=== PATIENT | female | born 1945 | race Caucasian/White ===

== ENCOUNTER 2019-04-24 09:11 | Outpatient (RCR) | payer MEDICARE ==
[~2019-04-24 09:11] MED LIST: CARB25TA18 PO; CLON0.5T17 PO; HERC150I IV; LATA0.0015 OP
[2019-05-05] MEDS ORDERED: DORZ2SOL5 OU (12:32)
[2019-05-05] MEDS ORDERED: REME15TA PO (12:32)
[2019-05-05] MEDS ORDERED: LETR2.5T2 PO (12:32)
[2019-05-05] MEDS ORDERED: GABA-1171 PO (13:10)
[2019-05-05] MEDS ORDERED: VALA1TAB2 PO (13:10)
[2019-05-20] MEDS ORDERED: IBUP-1022 PO (14:17)
[2019-05-20] MEDS ORDERED: GABA-843 PO (14:17)
[2019-05-20] MEDS ORDERED: ENDO5TAB PO (14:17)
[2019-05-20] MEDS ORDERED: LIDO5DIS41 TOP (14:17)
[2019-05-25] MEDS ORDERED: GABA-843 PO (12:14)
[2019-05-25] MEDS ORDERED: ENDO5TAB PO (12:15)
== END 2019-05-23 ==
LOC: M PT 09:11
PROVIDERS: ATTEND Internal Medicine Hematology & Oncology
DX: I89.0 Lymphedema, not elsewhere classified (principal)

== ENCOUNTER 2019-05-05 11:11 | Emergency (ER) | payer MEDICARE ==
[~2019-05-05] VITALS: Ht 167.6 cm; Wt 56.8 kg
[2019-05-05] MEDS ORDERED: LETR2.5T2 PO (12:32)
[2019-05-05] MEDS ORDERED: DORZ2SOL5 OU (12:32)
[2019-05-05] MEDS ORDERED: REME15TA PO (12:32)
[2019-05-05] MEDS ORDERED: VALA1TAB2 PO (13:10)
[2019-05-05] MEDS ORDERED: GABA-1171 PO (13:10)
[2019-05-05 13:29] VITALS: BP 141/67
[2019-05-25] MEDS ORDERED: GABA-843 PO (12:14)
[2019-05-25] MEDS ORDERED: ENDO5TAB PO (12:15)
== END 2019-05-05 13:32 | disposition home or self-care (01) ==
LOC: M ED 11:11
DX: B02.9 Zoster without complications (principal); M79.2 Neuralgia and neuritis, unspecified; Z85.3 Personal history of malignant neoplasm of breast; Z72.0 Tobacco use; Z79.899 Other long term (current) drug therapy

== ENCOUNTER → 2019-05-08 | Outpatient (CLI) | payer MEDICARE ==
[~2019-05-08] MED LIST changes: +DORZ2SOL5 OU; +GABA-1171 PO; +LETR2.5T2 PO; +REME15TA PO; +VALA1TAB2 PO
--- NOTE | 2019-05-12 00:27 | ECHO ---
DATE OF PROCEDURE: 05/08/2019 REFERRING PHYSICIAN: Dr. Cherry Asencio PATIENT LOCATION: Outpatient. REASON FOR THE ECHOCARDIOGRAM: Chemotherapy drug monitoring. 2D MEASUREMENTS: IVS: 0.7 cm LV: 5.1 cm LVPW: 0.8 cm LA: 3.2 cm Aorta: 3.3 cm DOPPLER MEASUREMENTS: Peak velocity across the aortic valve: 1.2 m/s Peak velocity across the LVOT: 0.8 m/s Mitral E 0.5, Mitral A 0.7 with a ratio of 0.7. Maximum tricuspid valve velocity: 2.3 m/s 2D COMMENTS: 1. Normal left ventricular size, wall thickness and normal global left ventricular systolic function. The estimated left ventricular systolic ejection fraction is 60-65%. 2. Normal left atrium. Normal right atrium and right ventricle. 3. The atrial septum appeared to be normal without evidence of defect or shunt. 4. Normal aortic root. 5. No pericardial effusion seen. 6. Normal aortic valve. Mildly calcified mitral annulus with normal-appearing mitral valve leaflet motion. Normal tricuspid valve and pulmonic valve. The proximal pulmonary artery branches appear to be normal in size. 7. The inferior vena cava was not visualized. DOPPLER: It detects mild mitral regurgitation and mild tricuspid regurgitation. The calculated pulmonary artery systolic pressure appeared to be normal. Trace pulmonic regurgitation also detected. Abnormal relaxation pattern was noted across the mitral valve leaflets as well as the mitral valve annulus, consistent with some features of grade 1 left ventricular diastolic dysfunction. IMPRESSION: 1. Normal global left ventricular systolic function. There are some features of left ventricular diastolic dysfunction manifested by abnormal relaxation. 2. A sigmoid appearance of the basal ventricular septum was noted, benign findings. 3. Mitral annulus calcification with mild mitral regurgitation. 4. Mild tricuspid regurgitation. Pulmonary artery systolic pressure appeared to be normal. 5. Trace pulmonic regurgitation. 6. The inferior vena cava was not visualized.
== END ==
LOC: M CARPUL 09:13
PROVIDERS: ATTEND Internal Medicine Medical Oncology
DX: C50.919 Malignant neoplasm of unspecified site of unspecified female breast (principal)

== ENCOUNTER 2019-05-20 11:38 | Emergency (ER) | payer MEDICARE ==
[~2019-05-20] VITALS: Ht 167.6 cm; Wt 55.9 kg
[2019-05-20] MEDS ORDERED: PERCOCET 5MG/325MG TAB PO ONE (14:15)
[2019-05-20] MEDS ORDERED: LIDOCAINE 5% (LIDODERM) PATCH TD ONE (14:15)
[2019-05-20] MEDS ORDERED: IBUPROFEN 600 MG TAB PO ONE (14:15)
[2019-05-20] MEDS ORDERED: GABA-843 PO (14:17)
[2019-05-20] MEDS ORDERED: IBUP-1022 PO (14:17)
[2019-05-20] MEDS ORDERED: LIDO5DIS41 TOP (14:17)
[2019-05-20] MEDS ORDERED: ENDO5TAB PO (14:17)
[2019-05-20 14:26] VITALS: BP 127/75
[2019-05-25] MEDS ORDERED: GABA-843 PO (12:14)
[2019-05-25] MEDS ORDERED: ENDO5TAB PO (12:15)
[2019-06-04] MEDS ORDERED: ENDO5TAB PO (16:58)
== END 2019-05-20 14:38 | disposition home or self-care (01) ==
LOC: M ED 11:38
DX: B02.29 Other postherpetic nervous system involvement (principal); R03.0 Elevated blood-pressure reading, without diagnosis of hypertension; G20 Parkinson's disease; H40.9 Unspecified glaucoma; Z85.3 Personal history of malignant neoplasm of breast; Z79.899 Other long term (current) drug therapy

== ENCOUNTER 2021-04-28 09:22 | Emergency (ER) | payer MEDICARE ==
[~2021-04-28] VITALS: Ht 167.6 cm; Wt 79.1 kg
[~2021-04-28 09:22] MED LIST changes: +ENDO5TAB PO; +GABA-282 PO; +IBUP-1022 PO; +LIDO5DIS41 TOP; +MIRT-62 PO; -REME15TA PO; -VALA1TAB2 PO; +VALA1TAB5 PO
[2021-04-28 09:24] VITALS: BP 138/83
--- NOTE | 2021-04-28 12:26 | REP ---
INDICATION: posterior head trauma COMPARISON: None. TECHNIQUE: Axial noncontrast images from the skull base to the thoracic inlet with coronal reformations. This CT examination was performed using the following dose reduction techniques: Automated exposure control, adjustment of mA and/or kv according to the patient's size, and use of iterative reconstruction technique. FINDINGS: Atrophy with periventricular leukomalacia and microvascular ischemic changes are appreciated. The ventricles and sulci are symmetric. Steen-white differentiation is maintained. There is no evidence for acute intracranial hemorrhage, mass/mass effect, pathology or infarction. No extra-axial fluid collection. Calvarium is intact. Paranasal sinuses and mastoid air cells are clear. IMPRESSION: Atrophy and microvascular ischemic changes. No acute intracranial hemorrhage, infarction, or mass/mass effect. <Electronically signed by Faisal Keyes > 04/28/21 [id number]
[2021-04-28] MEDS ORDERED: ROLLMIS8 XX ×2 (12:58→13:03)
== END 2021-04-28 13:27 | disposition home or self-care (01) ==
LOC: M ED 09:22
DX: S01.01XA Laceration without foreign body of scalp, initial encounter (principal); W19.XXXA Unspecified fall, initial encounter; Y92.009 Unspecified place in unspecified non-institutional (private) residence as the place of occurrence of the external cause; Y93.9 Activity, unspecified; Y99.9 Unspecified external cause status; H40.9 Unspecified glaucoma; Z79.899 Other long term (current) drug therapy

== ENCOUNTER 2021-05-03 12:37 | Emergency (ER) | payer MEDICARE ==
[~2021-05-03] VITALS: Ht 167.6 cm; Wt 79.5 kg
[2021-05-03 12:37] VITALS: BP 151/89
[~2021-05-03 12:37] MED LIST changes: +ROLLMIS8 XX
[2021-05-03] MEDS ORDERED: BOOSTRIX/ADACEL VACCINE (DIPHTH/PERTUSS/ACELL/TETANUS) 0.5ML SYR IM ONE (12:55)
[2021-05-03] MEDS ORDERED: GABA600T4 (12:57)
[2021-05-03] MEDS ORDERED: DULO1CAP5 (12:57)
== END 2021-05-03 13:05 | disposition home or self-care (01) ==
LOC: M ED 12:37
DX: Z48.02 Encounter for removal of sutures (principal); Z79.899 Other long term (current) drug therapy